=== PATIENT | male | born 1985 ===

== ENCOUNTER 2017-04-14 19:03 | Emergency (ER) | payer BC ==
[2017-04-14 19:16] VITALS: TEMP 97.4; O2SAT 100
--- NOTE | 2017-04-14 20:03 | ED PDOC ---
HPI: Chest Pain Time Seen by Provider: 04/14/17 19:34 Chief Complaint (Nursing): Chest Pain Chief Complaint (Provider): Chest Pain History Per: Patient History/Exam Limitations: no limitations Onset/Duration Of Symptoms: Days (x1.5 weeks) Current Symptoms Are (Timing): Still Present Additional Complaint(s): 31 year old male with a past medical history of asthma, who presents to the ED complaining of chest pain x1.5 weeks. Patient reports feeling a sudden pain to the left side of his chest while shoveling snow 1.5 weeks ago with associated dizziness. States the pain resolved, but he felt continued soreness on the left side of his chest. Says he thought he was all better, but later had a non- exertional episode of left sided chest pain and felt light headed. Denies cough , fever, and pain. States pain is a bit worse when pressing on a particular area. Denies taking any medication for pain. PMD: Dr. Jimmy Worley Past Medical History Reviewed: Historical Data, Nursing Documentation, Vital Signs Vital Signs: Last Vital Signs Temp 97.4 F L 04/14/17 19:13 Pulse 113 H 04/14/17 19:13 Resp 18 04/14/17 19:13 BP 156/88 H 04/14/17 19:13 Pulse Ox 100 04/14/17 20:10 - Medical History PMH: Asthma - Surgical History Surgical History: No Surg Hx - Family History Family History: States: Other Other Family History: Asthma - Social History Current smoker - smoking cessation education provided: No Alcohol: Occasional Drugs: Denies - Allergies Allergies/Adverse Reactions: Allergies Allergy/AdvReac Type Severity Reaction Status Date / Time No Known Allergies Allergy Verified 04/14/17 19:13 Review of Systems ROS Statement: Except As Marked, All Systems Reviewed And Found Negative (as per HPI) Physical Exam - Reviewed Nursing Documentation Reviewed: Yes Vital Signs Reviewed: Yes - Physical Exam Appears: Positive for: Non-toxic, No Acute Distress Head Exam: Positive for: ATRAUMATIC, NORMOCEPHALIC Skin: Positive for: Warm, Dry Eye Exam: Positive for: EOMI, PERRL ENT: Negative for: Pharyngeal Erythema, Tonsillar Exudate Neck: Positive for: Painless ROM, Supple Cardiovascular/Chest: Positive for: Regular Rate, Rhythm, Other (reproducible). Negative for: Murmur Respiratory: Positive for: Normal Breath Sounds. Negative for: Rales, Rhonchi, Wheezing, Respiratory Distress Extremity: Positive for: Normal ROM. Negative for: Pedal Edema Lymphatic: Negative for: Adenopathy Neurologic/Psych: Positive for: Alert. Negative for: Motor/Sensory Deficits - ECG ECG Rhythm: Positive for: Normal ST Segment, Sinus Rhythm, Nonspecific Changes O2 Sat by Pulse Oximetry: 100 (RA) Pulse Ox Interpretation: Normal - Radiology X-Ray: Interpreted by Me X-Ray Interpretation: No Acute Disease Medical Decision Making Medical Decision Making: Time: 19:49 Initial Impression: Chest pain reproducible. Differential diagnoses include, but are not limited to costochondritis, musculoskeletal strain, rib strain, pneumothorax Initial Plan: --Chest X-Ray 2 views --Reevaluation Scribe Attestation: Documented by Tang Ayers, acting as a scribe for Natalie Benson MD. Provider Scribe Attestation: All medical record entries made by the Scribe were at my direction and personally dictated by me. I have reviewed the chart and agree that the record accurately reflects my personal performance of the history, physical exam, medical decision making, and the department course for this patient. I have also personally directed, reviewed, and agree with the discharge instructions and disposition. Disposition - Clinical Impression Clinical Impression: Chest pain Counseled Patient/Family Regarding: Studies Performed, Diagnosis, Need For Followup - Disposition Referrals: Christopher Worley MD [Family Provider] - 04/15/17 (CALL TOMORROW TO SETUP FOLLOW UP APPOINTMENT BY NEXT WEEK) Disposition: Routine/Home Disposition Time: 21:00 Condition: GOOD Instructions: Noncardiac Chest Pain (ED) Forms: [facility] ED School/Work Excuse
[2017-04-14 21:19] VITALS: BP 148/77; PULSE 89; RESP 16
--- NOTE | 2017-04-15 10:01 | RAD ---
HISTORY: chest pain COMPARISON: No prior. TECHNIQUE: Chest PA and lateral FINDINGS: LUNGS: No active pulmonary disease. PLEURA: No significant pleural effusion identified. No pneumothorax apparent. CARDIOVASCULAR: Normal. OSSEOUS STRUCTURES: No significant abnormalities. VISUALIZED UPPER ABDOMEN: Normal. OTHER FINDINGS: None. IMPRESSION: No active disease.
--- NOTE | 2017-04-15 18:11 | CARD ---
APPROVED REPORT EKG Measurement Heart [id number] <Conclusion> Normal sinus rhythm Nonspecific ST and T wave abnormality Abnormal ECG
== END 2017-04-14 21:31 | disposition home or self-care (01) ==
LOC: H.ER 19:03
DX: J45.909 Unspecified asthma, uncomplicated (principal)